=== PATIENT | male | born 1990 | race African-American/Black ===

== ENCOUNTER → 2019-04-17 | Outpatient (CLI) | payer MEDICARE | LOC: M OUTALCOH 08:04 | PROVIDERS: ATTEND Psychiatry & Neurology Addiction Medicine | DX: Z13.39 Encounter for screening examination for other mental health and behavioral disorders (principal); F10.20 Alcohol dependence, uncomplicated; F12.20 Cannabis dependence, uncomplicated ==

== ENCOUNTER → 2019-05-01 | Outpatient (RCR) | payer MEDICARE | LOC: M OUTALCOH 10:50 | PROVIDERS: ATTEND Psychiatry & Neurology Addiction Medicine | DX: F12.20 Cannabis dependence, uncomplicated (principal); F10.20 Alcohol dependence, uncomplicated ==

== ENCOUNTER 2019-05-14 11:09 | Outpatient (RCR) | payer MEDICARE ==
[2019-05-30] MEDS ORDERED: IBUP80TA PO (23:59)
[2019-05-30] MEDS ORDERED: CYCL10TA PO (23:59)
== END 2019-05-30 ==
LOC: M OUTALCOH 11:09
PROVIDERS: ATTEND Psychiatry & Neurology Addiction Medicine
DX: F12.20 Cannabis dependence, uncomplicated (principal); F10.20 Alcohol dependence, uncomplicated

== ENCOUNTER 2019-05-30 20:53 | Emergency (ER) | payer OTHER ==
[~2019-05-30] VITALS: Ht 180.3 cm; Wt 70.5 kg
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
[2019-05-30] MEDS ORDERED: IBUPROFEN 800 MG TAB PO ONE (23:45)
[2019-05-30] MEDS ORDERED: CYCLOBENZAPRINE 10 MG TAB PO ONE (23:45)
[2019-05-30] MEDS ORDERED: IBUP80TA PO (23:59)
[2019-05-30] MEDS ORDERED: CYCL10TA PO (23:59)
[2019-05-31 00:09] VITALS: BP 121/79
--- NOTE | 2019-06-01 07:36 | REP ---
LEFT WRIST, FOUR VIEWS: There is no evidence of an acute fracture, dislocation or intrinsic bone disease. IMPRESSION: No fracture or dislocation. Electronically Signed by Osman Douglas MD 06/01/2019 12:01 P
--- NOTE | 2019-06-01 07:37 | REP ---
LUMBOSACRAL SPINE: Five views of the lumbosacral spine are performed. There is no compression fracture or malalignment. There is normal lumbar lordosis. Disc spaces appear relatively well preserved. Posterior elements are intact. IMPRESSION: No fracture or dislocation. Electronically Signed by Osman Dogulas MD 06/01/2019 12:02 P
== END 2019-05-31 00:10 | disposition home or self-care (01) ==
LOC: M ED 20:53
DX: S60.812A Abrasion of left wrist, initial encounter (principal); S13.4XXA Sprain of ligaments of cervical spine, initial encounter; S33.5XXA Sprain of ligaments of lumbar spine, initial encounter; R51 Headache; V43.52XA Car driver injured in collision with other type car in traffic accident, initial encounter; Y92.9 Unspecified place or not applicable; Y93.9 Activity, unspecified; Y99.9 Unspecified external cause status